=== PATIENT | female | born 1950 | race Caucasian/White ===

== ENCOUNTER → 2022-06-04 00:54 | Outpatient (CLI) | payer MEDICARE, SELFPAY ==
--- NOTE | 2022-06-04 | DI.CTLCSR_ITS ---
Exam(s) CT CHEST LUNG CANCER SCREEN EXAM: CT CHEST LUNG CANCER SCREEN CLINICAL HISTORY: FORMER SMOKER Z87.891 SCREENING FOR LUNG CANCER TECHNIQUE: Imaging Protocol: Axial computed tomography images with coronal and sagittal reformatted images were created and reviewed COMPARISON: No exams were available for comparison FINDINGS: Tracheobronchial tree: Patent where visualized. Pulmonary parenchyma: No focal consolidating infiltrates are seen. Moderate centrilobular emphysemat ous changes are present. There is scarring in the lung apices right greater than left. Lung Nodules: There is a 1.5 x 1.7 cm mildly spiculated mass in the medial aspect of the right upper lobe which appears intraparenchymal. There are other pulmonary nodule seen also present. The larges t is associated with the right major fissure and measures 0.8 cm. Mediastinum and Etta: The lack of contrast does limit evaluation of the mediastinum. But there does appear to be an enlarged lymph node anterior to the trachea measuring 3 x 2.3 cm. The esophagus is u nremarkable. Thyroid gland: Unremarkable. Lymph nodes: No supraclavicular or axillary adenopathy is present. Pleura: No effusion or pneumothorax. Heart: The heart is not dilated. No coronary artery calcifications are seen. No pericardial effusion . Aorta: Thoracic aorta non-dilated.Atherosclerosis is present. Upper abdomen: Unremarkable. Soft Tissues: Unremarkable. Bones: Within normal limits. IMPRESSION: 1. 1.5 x 1.7 cm mass in the medial aspect of the right upper lobe. Enlarged mediastinal lymph node m easuring 3 x 2.3 cm. 2. Centrilobular emphysema. 3. Smaller noncalcified pulmonary nodules. The largest measures 0.8 cm and is located in the right l ower lobe. Lung RADS Cat 4X - Category 3 or 4 nodules with additional features or imaging findings that increase s the suspicion of malignancy. Lung-RADS 1.0 CATEGORIES: Category 0 - Prior chest CT exam(s) being located for comparison. Category 1 - Annual screening in 12 months. No nodules or definitely benign nodules. Category 2 - Annual screening in 12 months. Benign appearance. Nodules with low likelihood of becomin g active cancer. Category 3 - 6-month follow-up. Probably benign. Short-term follow-up suggested. Nodules with low lik elihood of becoming active cancer. Category 4A - 3-month follow-up and CT/PET if >8 mm in size. Suspicious finding. Findings which requi re additional testing. Category 4B - Findings which require additional testing and tissue sampling. Suspicious finding. Category 4X - Category 3 or 4 nodules with additional features or imaging findings that increases the suspicion of malignancy. Modifier S- Potentially clinically significant finding. (Non lung cancer) RADIATION DOSE DELIVERED: 78.32mGy.cm Total DLP 1.84mGy CTDIvol 78.32mGy.cm Total DLP 1.84mGy CTDIvol DATA REPOSITORY: All CT scans at this facility are submitted to the National Radiology Data Registry (NRDR) Dose Index Registry (DIR) with the [employer] (ACR). RADIATION OPTIMIZATION: All CT scans at this facility use at least one of these dose optimization te chniques: automated exposure control; mA and/or kV adjustment per patient size (includes targeted exa ms where dose is matched to clinical indication); or iterative reconstruction.
== END ==
PROVIDERS: Visit Provider Family Medicine
DX: Z87.891 Personal history of nicotine dependence (principal); J43.2 Centrilobular emphysema; R91.8 Other nonspecific abnormal finding of lung field
CPT/HCPCS: 71271

== ENCOUNTER 2022-07-15 01:24 | Outpatient (CLI) | payer MEDICARE, SELFPAY ==
--- NOTE | 2022-07-15 07:00 | DI.MAMMO_ITS ---
Exam(s) US BREAST RT COMPLETE MG MAMMO DIAGNOSTIC BI EXAM: MG MAMMO DIAGNOSTIC BI and U/S breast RT complete CLINICAL HISTORY: right PET+ breast nodule N64.9 DISORDER OF BREAST. TECHNIQUE: Craniocaudal and mediolateral oblique Full Field Digital Mammography views with Computer Aided Diagnosis followed by Tomosynthesis and right breast ultrasound. This is a baseline mammogram. FINDINGS: Mammography/Tomosynthesis: Masses/Architectural Distortion: None seen. There is a 1 cm well-circumscribed nodule at the 12 o'sarah ck position of the right breast. This corresponds to a dermal focus of increased activity on the PET CT scan. Sonographically this corresponds to a bilobed hypoechoic subcutaneous nodule at the 12 o'c lock position in the right breast. This likely is reflect a benign dermal lesion. Microcalcifictions: No suspicious pleomorphic-type are seen. Skin Thickening/Nipple Retraction: None. Complete right breast US: Echotexture: Normal appearance of the glandular tissue. Shadowing: No suspicious foci. Cyst: None. Solid lesions: The 1 cm dermal lesion is seen at the 12 o'clock position of the right breast and zunilda esponds to the mammographic abnormality as described above. At the 1 o'clock position of the right b reast near the chest wall 3 cm from the nipple, there is a hypoechoic 0.8 cm area. This may correspo nd to the finding seen on the PET scan. Ductal dilation: None. IMPRESSION: 1. 0.8 cm hypoechoic area at of the right breast 3 cm from the nipple. 2. This area should be further evaluated. An MRI of the breast is recommended at this time for garret r characterization. Alternatively, an ultrasound-guided biopsy may be obtained. 3. The findings were discussed with the patient on the date of the examination. The findings were di scussed with the patient's physician Dr. Josephine Mccloud at 2:20 p.m. on 07/15/2022. BI-RADS Category 4 - Suspicious Abnormality: Biopsy should be considered Breast Density - Category C - Heterogeneously dense Breast density Category C or D implies that the patient has dense breast tissue. Dense breast tissue can make it harder to find cancer on a mammogram. Dense breast tissue is also associated with an incr eased risk of breast cancer. This information about the result of the mammogram report was provided to the patient to raise their awareness. Use this report when you speak with the patient about their risks for breast cancer, which includes their family history. At that time, you may recommend additional screening tests (Ultrasoun d or MRI) as these tests may add significant information. A negative radiographic report should not delay biopsy if a dominant or clinically suspicious mass is present. Up to ten percent of cancers are not identified on mammography. A negative report may reinforce clinical impression. Adenosis and dense breasts may obscure an underlying neoplasm. False positive reports average 6 to 10%. Patient will receive a letter notifying them of these results.
== END 2022-07-15 01:44 ==
LOC: DI 01:25
PROVIDERS: PCP Family Medicine; Visit Provider Student in an Organized Health Care Education/Training Program
DX: R92.8 Other abnormal and inconclusive findings on diagnostic imaging of breast (principal)
CPT/HCPCS: 76642; 77062; 77066; G0279

== ENCOUNTER → 2022-07-22 11:17 | Outpatient (BNVA) | payer MEDICARE, SELFPAY | PROVIDERS: PCP Family Medicine; Referring Provider Student in an Organized Health Care Education/Training Program; Visit Provider Surgery | DX: L98.9 Disorder of the skin and subcutaneous tissue, unspecified (principal) | CPT/HCPCS: 99203 ==

== ENCOUNTER 2022-07-29 01:57 | Outpatient (CLI) | payer MEDICARE, SELFPAY ==
--- NOTE | 2022-07-29 06:45 | DI.MRI_ITS ---
Exam(s) MR BRAIN WO/W EXAM: MR BRAIN WO/W CLINICAL HISTORY: concern for SCLC, PET+ lung mass with mets,r91.8. TECHNIQUE: Multiplanar multisequence MRI of the brain was performed. CONTRAST MATERIAL: IV Contrast: 15 ML of Dotarem contrast administered. COMPARISON: No exams were available for comparison FINDINGS: VENTRICLES AND EXTRA AXIAL SPACES: Normal in size and morphology for the patient's age. HEMORRHAGE: None. CEREBRAL PARENCHYMA: Mild atrophy. Mild white matter changes of small vessel disease. No focus of r estricted diffusion to suggest acute infarct. No space-occupying lesion identified. MIDLINE SHIFT: None. BRAINSTEM/CEREBELLUM: Normal. ENHANCEMENT: No suspicious enhancement identified. VISUALIZED PARANASAL SINUSES/MASTOIDS: Clear. OTHER FINDINGS: Orbits and pituitary are unremarkable. IMPRESSION: No evidence metastatic disease. DATA REPOSITORY:
[2022-07-29 10:15] LABS: CREATININE 1.3 mg/dL (0.55-1.02); Estimated GFR 43.69 (mL/min/1.73m2)
[2022-07-29] MEDS: Normal Saline Flush 10 ML SYR IVP (10:25)
== END 2022-07-29 02:17 ==
LOC: DI 01:57
PROVIDERS: PCP Family Medicine; Visit Provider Student in an Organized Health Care Education/Training Program
DX: R91.8 Other nonspecific abnormal finding of lung field (principal); Z01.812 Encounter for preprocedural laboratory examination; G31.89 Other specified degenerative diseases of nervous system; R90.82 White matter disease, unspecified
CPT/HCPCS: 70553; 82565

== ENCOUNTER → 2022-07-31 09:15 | Outpatient (BNVA) | payer MEDICARE, SELFPAY | PROVIDERS: PCP Family Medicine; Referring Provider Family Medicine; Visit Provider Surgery | DX: D48.5 Neoplasm of uncertain behavior of skin (principal) | CPT/HCPCS: 99214 ==

== ENCOUNTER 2022-07-31 10:10 | Outpatient (REF) | payer MEDICARE, SELFPAY ==
--- NOTE | 2022-07-31 09:55 | SKI_PTH ---
PATIENT: Sarah Painter LOC: [facility] U#:[id number] AGE/SX: 71/F ROOM: RE07/31/[address]: rBendon Morrissey MD : 1950 BED: DIS: 07/31/2022 SPEC #: [id number] RECD: 07/31/22 12:40 STATUS: JASMINE RETrista #: [id number] DAFNE: 07/31/22 09:[address]: Brendon Morrissey DEPT: Surgical Specimen RECD BY: Evelyn Fung ENTERED: 07/31/22 12:42 SP TYPE: SKI OTHR DR: Josephine Mccloud Tissues: 1 - SKIN BIOPSY(SHAVE/PUNCH) Procedures: SKIN LEVEL 4 Comments: [id number]
== END 2022-07-31 10:11 | disposition home or self-care (01) ==
LOC: LBN 10:10
PROVIDERS: PCP Family Medicine; Visit Provider Surgery
DX: L98.8 Other specified disorders of the skin and subcutaneous tissue (principal)
CPT/HCPCS: 88305

== ENCOUNTER → 2022-08-09 14:46 | Outpatient (BNVA) | payer MEDICARE, SELFPAY | PROVIDERS: PCP Family Medicine; Referring Provider Family Medicine; Visit Provider Surgery | DX: Z48.89 Encounter for other specified surgical aftercare (principal); D23.9 Other benign neoplasm of skin, unspecified | CPT/HCPCS: 99212 ==

== ENCOUNTER 2022-09-03 03:24 | Outpatient (CLI) | payer MEDICARE, SELFPAY ==
[2022-09-03 07:37] LABS: Abs Immature Grans 0.01 10^3/uL (0.0-0.06); Absolute Basophil Count 0.05 10^3/uL (0.0-0.2); Absolute Eosinophil Count 0.12 10^3/uL (0.0-0.7); Absolute Lymphocyte Count 1.16 10^3/uL (1.2-3.4); Absolute Monocyte Count 0.45 10^3/uL (0.1-0.8); Absolute Neutrophil Count 4.24 10^3/uL (1.2-6.7); Basophils % 0.8; HGB 13.3 g/dL (11.2-15.7); Immature Grans % 0.2; Lymphocytes % 19.2; MCHC 32.4 % (32.0-36.0); MCV 90 fL (80-95); MPV 9.6 fL (8.0-11.0); Monocytes % 7.5; Neutrophils % 70.3; Platelet Count 260 10^3/uL (130-400); RBC 4.58 10^6/uL (3.93-5.22); RDW 13.9 % (11.7-14.6); RDW-SD 45.3 fL; WBC 6.03 10^3/uL (4.4-10.8)
[2022-09-03 07:54] LABS: ALT 20 U/L (14-59); AST 20 U/L (15-37); Albumin 3.4 g/dL (3.4-5.0); Alkaline Phosphatase 112 U/L (46-116); Anion Gap 8.4 mmol/L (3-11); BUN 28 mg/dL (7-18); Bilirubin, Total 0.3 mg/dL (0.2-1.0); CO2 27.6 mmol/L (21.0-32.0); CREATININE 1.1 mg/dL (0.55-1.02); Calcium 9.1 mg/dL (8.5-10.1); Chloride 105 mmol/L (98-107); Estimated GFR 53.39 (mL/min/1.73m2); FREE T4 1.15 ng/dL (0.76-1.46); Glucose 79 mg/dL (74-106); Magnesium 1.9 mg/dL (1.8-2.4); Potassium 4.1 mmol/L (3.5-5.1); Sodium 141 mmol/L (136-145); TSH 1.78 uIU/mL (0.36-3.74); Total Protein 7.7 g/dL (6.4-8.2)
== END 2022-09-03 03:25 | disposition home or self-care (01) ==
LOC: LBO 03:24
PROVIDERS: PCP Family Medicine; Visit Provider Internal Medicine Medical Oncology
DX: Z79.899 Other long term (current) drug therapy (principal); C34.91 Malignant neoplasm of unspecified part of right bronchus or lung
CPT/HCPCS: 36415; 80053; 83735; 84439; 84443; 85025

== ENCOUNTER 2022-09-25 02:30 | Outpatient (CLI) | payer MEDICARE, SELFPAY ==
[2022-09-25 08:30] LABS: Abs Immature Grans 0.02 10^3/uL (0.0-0.06); Absolute Basophil Count 0.02 10^3/uL (0.0-0.2); Absolute Eosinophil Count 0.09 10^3/uL (0.0-0.7); Absolute Lymphocyte Count 1.11 10^3/uL (1.2-3.4); Absolute Monocyte Count 0.44 10^3/uL (0.1-0.8); Absolute Neutrophil Count 2.86 10^3/uL (1.2-6.7); Basophils % 0.4; HCT 38.6 % (36.0-46.0); HGB 12.4 g/dL (11.2-15.7); Immature Grans % 0.4; Lymphocytes % 24.4; MCH 29.2 pg (27.0-33.0); MCHC 32.1 % (32.0-36.0); MCV 91 fL (80-95); Monocytes % 9.7; Neutrophils % 63.1; Platelet Count 181 10^3/uL (130-400); RBC 4.24 10^6/uL (3.93-5.22); RDW 14.8 % (11.7-14.6); RDW-SD 46.4 fL; WBC 4.54 10^3/uL (4.4-10.8)
[2022-09-25 09:11] LABS: ALT 42 U/L (14-59); AST 28 U/L (15-37); Albumin 3.5 g/dL (3.4-5.0); Alkaline Phosphatase 116 U/L (46-116); Anion Gap 7.1 mmol/L (3-11); BUN 21 mg/dL (7-18); Bilirubin, Total 0.2 mg/dL (0.2-1.0); CO2 26.9 mmol/L (21.0-32.0); CREATININE 1.3 mg/dL (0.55-1.02); Calcium 9.1 mg/dL (8.5-10.1); Chloride 107 mmol/L (98-107); Estimated GFR 43.69 (mL/min/1.73m2); FREE T4 1.16 ng/dL (0.76-1.46); Glucose 119 mg/dL (74-106); Magnesium 2.1 mg/dL (1.8-2.4); Potassium 4.2 mmol/L (3.5-5.1); Sodium 141 mmol/L (136-145); TSH 2.15 uIU/mL (0.36-3.74); Total Protein 7.4 g/dL (6.4-8.2)
== END 2022-09-25 02:31 | disposition home or self-care (01) ==
LOC: LBO 02:31
PROVIDERS: PCP Family Medicine; Visit Provider Internal Medicine Medical Oncology
DX: C34.91 Malignant neoplasm of unspecified part of right bronchus or lung (principal); Z79.899 Other long term (current) drug therapy
CPT/HCPCS: 36415; 80053; 83735; 84439; 84443; 85025

== ENCOUNTER 2022-10-15 02:10 | Outpatient (CLI) | payer MEDICARE, SELFPAY ==
--- NOTE | 2022-10-15 | DI.CT_ITS ---
Exam(s) CT CHEST/ABD/PEL W EXAM: CT CHEST/ABD/PEL W CLINICAL HISTORY: NSCLC, METS, ASSESS TREATMENT RESPONSE, MET DISEASE EVAL. TECHNIQUE: Imaging Protocol: Axial computed tomography images with coronal and sagittal reformatted images were created and reviewed CONTRAST MATERIAL: Intravenous: Omnipaque 350 Contrast volume:100 ml Oral: Yes. Oral contrast was administered for bowel opacification. COMPARISON: CT CT CHEST LUNG CANCER SCREEN from 06/04/2022 FINDINGS: CHEST: LUNGS: The previously described mass in the medial aspect of the right upper lobe is no longer seen. In addition, previously present sub apical nodular infiltrate in the right upper lobe is also no estrada price seen. However, there is a small nodular infiltrate in the lateral aspect of the right upper lobe now evident which show measures approximately 7 x 5 millimeters. Previously present fissure associa jimmy nodule in the right lower lobe measuring 7 by 5 millimeters is unchanged. Previously present sma ll nodular infiltrate in the posterior basal segment of the right lower lobe is no longer seen. No p leural effusion. In the opposite-left lung a small 2-3 millimeter nodular density in the lateral aspect of the left up per lobe is unchanged. Other nodular density in the lateral aspect of the left upper lobe is also un changed. In the left lower lobe there is an unchanged subpleural 3 millimeter nodule again noted. I n the lateral basal segment of the left lower lobe there is an unchanged 5 x 3 millimeter nodule. In the lateral aspect of the posterior basal segment of the left lower lobe there is a small pleural ba sed nodule measuring 3 millimeters which is more evident than on the prior study. No pleural effusions on either side. No significant new focal findings in the trachea and mainstem b ronchi. MEDIASTINUM: Decrease in right hilar adenopathy and subcarinal adenopathy. Left hilum unremarkable. No adenopathy in the anterior mediastinal fat. No axillary nor supraclavicular adenopathy. Visuali zed thyroid unremarkable. CARDIAC: Heart size is normal. There is no pericardial effusion.Caliber of the thoracic aorta is wit hin normal limits. OSSEOUS: No significant osseous lesions.No fractures.. ABDOMEN: There is no ascites. LIVER: There are no focal hepatic lesions nor dilatation of intrahepatic ducts. GALLBLADDER/BILIARY: No obvious gallbladder pathology. CBD is not dilated. PANCREAS: No evidence of pancreatic mass nor dilatation of the pancreatic duct. SPLEEN: Spleen is not enlarged. There are no intrasplenic lesions. Splenic and portal veins are garcia nt. ADRENALS: There are no significant adrenal masses. KIDNEYS: Small benign cyst in the superior pole left kidney noted measuring 1.2 x 1.0 cm. There is a 4 millimeter nonobstructive calculus in the right kidney midpole level. No solid renal masses. No hydronephrosis. No hydroureter.. ABDOMINAL AORTA: Abdominal aorta is calcified but not enlarged. Common iliac arteries are calcified but not enlarged. LYMPH NODES: There is no retroperitoneal nor paraaortic adenopathy. ABDOMINAL WALL: No evidence of significant anterior abdominal wall nor inguinal hernia. GI: There is no evidence of bowel obstruction. PELVIS: LYMPH NODES: There is no intrapelvic nor inguinal adenopathy. GI: No evidence of appendicitis.No evidence of sigmoid diverticulitis. URINARY BLADDER: No calculi nor masses evident REPRODUCTIVE: Uterus and adnexal regions appear unremarkable. No free fluid in the pelvis. OSSEOUS: No significant osseous lesions. IMPRESSION: 1. Compared to the prior CT scan of 06/04/2022 the previously described 1.5 x 1.7 cm mass in the medi al aspect of the right upper lobe is no longer present and the large right-sided mediastinal lymph no de has significantly decreased in size. The subcarinal adenopathy has also significantly decreased. 2. Other findings in both lung howard are decreased are stable with the exception of a new 7 x 5 mill imeter nodular infiltrate in the lateral aspect of the right upper lobe. Also new 3 millimeter subpl eural nodule in the left lower lobe. There are no pleural effusions. 3. No evidence of metastatic disease in the abdomen and pelvis. No ascites. 4. Small nonobstructive calculus in the right kidney and 4 millimeters. 5. No significant osseous lesions. No fractures. RADIATION DOSE DELIVERED: 1,618.26mGy.cm Total DLP DATA REPOSITORY: All CT scans at this facility are submitted to the National Radiology Data Registry (NRDR) Dose Index Registry (DIR) with the [employer] (ACR). RADIATION OPTIMIZATION: All CT scans at this facility use at least one of these dose optimization te chniques: automated exposure control; mA and/or kV adjustment per patient size (includes targeted exa ms where dose is matched to clinical indication); or iterative reconstruction.
[2022-10-15] MEDS: Barium Sulfate 2% W/V-Berry Smoothie 450 ML BTL 950 ML PO (08:10)
[2022-10-15] MEDS: Normal Saline - Diluent 50 ML VIAL IJ (10:27)
[2022-10-15] MEDS: Omnipaque 350 MG/ML 500 ML BTL-Imaging package 100 ML IJ (10:27)
== END 2022-10-15 02:30 ==
LOC: DI 02:10
PROVIDERS: PCP Family Medicine; Visit Provider Nurse Practitioner Family
DX: N20.0 Calculus of kidney (principal); R91.1 Solitary pulmonary nodule; C34.91 Malignant neoplasm of unspecified part of right bronchus or lung
CPT/HCPCS: 74177; 71260

== ENCOUNTER 2022-10-21 02:57 | Outpatient (CLI) | payer MEDICARE, SELFPAY ==
[2022-10-21 08:40] LABS: Abs Immature Grans 0.03 10^3/uL (0.0-0.06); Absolute Basophil Count 0.04 10^3/uL (0.0-0.2); Absolute Eosinophil Count 0.06 10^3/uL (0.0-0.7); Absolute Lymphocyte Count 0.81 10^3/uL (1.2-3.4); Absolute Monocyte Count 0.52 10^3/uL (0.1-0.8); Absolute Neutrophil Count 4.53 10^3/uL (1.2-6.7); Basophils % 0.7; HCT 36.9 % (36.0-46.0); HGB 12.2 g/dL (11.2-15.7); Immature Grans % 0.5; Lymphocytes % 13.5; MCH 30.7 pg (27.0-33.0); MCHC 33.1 % (32.0-36.0); MCV 93 fL (80-95); MPV 8.9 fL (8.0-11.0); Monocytes % 8.7; Neutrophils % 75.6; Platelet Count 310 10^3/uL (130-400); RBC 3.97 10^6/uL (3.93-5.22); WBC 5.99 10^3/uL (4.4-10.8)
[2022-10-21 09:20] LABS: ALT 37 U/L (14-59); AST 26 U/L (15-37); Albumin 3.5 g/dL (3.4-5.0); Alkaline Phosphatase 122 U/L (46-116); Anion Gap 9.2 mmol/L (3-11); BUN 17 mg/dL (7-18); Bilirubin, Total 0.2 mg/dL (0.2-1.0); CO2 24.8 mmol/L (21.0-32.0); CREATININE 1.3 mg/dL (0.55-1.02); Calcium 9.2 mg/dL (8.5-10.1); Chloride 107 mmol/L (98-107); Estimated GFR 43.69 (mL/min/1.73m2); FREE T4 1.03 ng/dL (0.76-1.46); Glucose 141 mg/dL (74-106); Sodium 141 mmol/L (136-145); TSH 3.44 uIU/mL (0.36-3.74); Total Protein 7.5 g/dL (6.4-8.2)
== END 2022-10-21 02:58 | disposition home or self-care (01) ==
LOC: LBO 02:57
PROVIDERS: PCP Family Medicine; Visit Provider Internal Medicine Medical Oncology
DX: C34.91 Malignant neoplasm of unspecified part of right bronchus or lung (principal); Z79.899 Other long term (current) drug therapy
CPT/HCPCS: 36415; 80053; 83735; 84439; 84443; 85025

== ENCOUNTER 2022-11-11 00:58 | Outpatient (CLI) | payer MEDICARE, SELFPAY ==
[2022-11-11 08:09] LABS: Abs Immature Grans 0.02 10^3/uL (0.0-0.06); Absolute Basophil Count 0.03 10^3/uL (0.0-0.2); Absolute Eosinophil Count 0.15 10^3/uL (0.0-0.7); Absolute Lymphocyte Count 0.98 10^3/uL (1.2-3.4); Absolute Monocyte Count 0.61 10^3/uL (0.1-0.8); Absolute Neutrophil Count 3.21 10^3/uL (1.2-6.7); Basophils % 0.6; HCT 35.7 % (36.0-46.0); Immature Grans % 0.4; Lymphocytes % 19.6; MCH 31.7 pg (27.0-33.0); MCHC 33.6 % (32.0-36.0); MCV 94 fL (80-95); Monocytes % 12.2; Neutrophils % 64.2; Platelet Count 179 10^3/uL (130-400); RBC 3.79 10^6/uL (3.93-5.22); RDW 20.4 % (11.7-14.6); RDW-SD 68.4 fL
[2022-11-11 08:44] LABS: ALT 42 U/L (14-59); AST 26 U/L (15-37); Albumin 3.6 g/dL (3.4-5.0); Alkaline Phosphatase 117 U/L (46-116); Anion Gap 8.9 mmol/L (3-11); BUN 22 mg/dL (7-18); Bilirubin, Total 0.2 mg/dL (0.2-1.0); CO2 26.1 mmol/L (21.0-32.0); CREATININE 1.2 mg/dL (0.55-1.02); Calcium 9.3 mg/dL (8.5-10.1); Chloride 104 mmol/L (98-107); Estimated GFR 48.09 (mL/min/1.73m2); Glucose 106 mg/dL (74-106); Magnesium 1.9 mg/dL (1.8-2.4); Potassium 4.4 mmol/L (3.5-5.1); Sodium 139 mmol/L (136-145); TSH 1.74 uIU/mL (0.36-3.74); Total Protein 7.5 g/dL (6.4-8.2)
== END 2022-11-11 00:59 | disposition home or self-care (01) ==
LOC: LBO 00:59
PROVIDERS: PCP Family Medicine; Visit Provider Internal Medicine Medical Oncology
DX: Z79.899 Other long term (current) drug therapy (principal); C34.91 Malignant neoplasm of unspecified part of right bronchus or lung
CPT/HCPCS: 36415; 80053; 83735; 84439; 84443; 85025

== ENCOUNTER 2023-01-20 11:30 | Outpatient (CLI) | payer MEDICARE, SELFPAY ==
[2023-01-20 10:09] LABS: Abs Immature Grans 0.02 10^3/uL (0.0-0.06); Absolute Basophil Count 0.05 10^3/uL (0.0-0.2); Absolute Eosinophil Count 0.12 10^3/uL (0.0-0.7); Absolute Lymphocyte Count 0.35 10^3/uL (1.2-3.4); Absolute Monocyte Count 0.53 10^3/uL (0.1-0.8); Absolute Neutrophil Count 3.52 10^3/uL (1.2-6.7); Basophils % 1.1; Eosinophils % 2.6; HCT 34.8 % (36.0-46.0); HGB 11.2 g/dL (11.2-15.7); Immature Grans % 0.4; Lymphocytes % 7.6; MCH 31.5 pg (27.0-33.0); MCHC 32.2 % (32.0-36.0); MCV 98 fL (80-95); MPV 8.8 fL (8.0-11.0); Monocytes % 11.5; Neutrophils % 76.8; Platelet Count 230 10^3/uL (130-400); RBC 3.55 10^6/uL (3.93-5.22); RDW 14.6 % (11.7-14.6); RDW-SD 52.8 fL; WBC 4.59 10^3/uL (4.4-10.8)
[2023-01-20 10:44] LABS: ALT 18 U/L (14-59); AST 16 U/L (15-37); Albumin 3.3 g/dL (3.4-5.0); Alkaline Phosphatase 128 U/L (46-116); Anion Gap 6.2 mmol/L (3-11); BUN 23 mg/dL (7-18); Bilirubin, Total 0.3 mg/dL (0.2-1.0); CO2 26.8 mmol/L (21.0-32.0); CREATININE 1.4 mg/dL (0.55-1.02); Calcium 9.6 mg/dL (8.5-10.1); Chloride 104 mmol/L (98-107); Estimated GFR 39.73 (mL/min/1.73m2); FREE T4 1.28 ng/dL (0.76-1.46); Glucose 89 mg/dL (74-106); Sodium 137 mmol/L (136-145); TSH 0.84 uIU/mL (0.36-3.74); Total Protein 8.1 g/dL (6.4-8.2)
== END 2023-01-20 11:31 | disposition home or self-care (01) ==
LOC: LBO 11:31
PROVIDERS: PCP Family Medicine; Visit Provider Internal Medicine Medical Oncology
DX: C34.91 Malignant neoplasm of unspecified part of right bronchus or lung (principal); Z79.899 Other long term (current) drug therapy
CPT/HCPCS: 36415; 80053; 83735; 84439; 84443; 85025

== ENCOUNTER 2023-03-31 01:25 | Outpatient (CLI) | payer MEDICARE, SELFPAY ==
--- NOTE | 2023-03-31 | DI.CT_ITS ---
Exam(s) CT CHEST W EXAM: CT CHEST W CLINICAL HISTORY: STAGE 4 LUNG CA, S/P CONSOLIDATIVE RT TO THORAX ENDING 12/2022 TECHNIQUE: Imaging Protocol: Axial computed tomography images with coronal and sagittal reformatted images were created and reviewed CONTRAST MATERIAL: Intravenous: Omnipaque 350 Contrast volume:70 ml. COMPARISON: CT CT CHEST LUNG CANCER SCREEN from 06/04/[address] CHEST/ABD/PEL W from 10/15/2022 FINDINGS: Pulmonary parenchyma: No consolidation. Underlying emphysematous and fibrotic changes. Bilateral scat tered subpleural nodules. Stable perifissural nodule on the right. Area of scarring seen laterally in the right upper lobe is unchanged. Tracheobronchial tree: No bronchiectasis or mucous plugging. Mediastinum and Etta: No dominant adenopathy or fluid collection. Pleura: No effusion or pneumothorax. Heart: The heart is not dilated. No coronary artery calcifications are seen. Aorta: Thoracic aorta non-dilated. Upper abdomen: Non-obstructing stone mid right kidney. Bones: Degenerative changes. Soft tissues: Unremarkable. IMPRESSION: No evidence of recurrent mass or adenopathy. RADIATION DOSE DELIVERED: 490.63mGy.cm Total DLP DATA REPOSITORY: All CT scans at this facility are submitted to the National Radiology Data Registry (NRDR) Dose Index Registry (DIR) with the [employer] (ACR). RADIATION OPTIMIZATION: All CT scans at this facility use at least one of these dose optimization te chniques: automated exposure control; mA and/or kV adjustment per patient size (includes targeted exa ms where dose is matched to clinical indication); or iterative reconstruction.
[2023-03-31 08:02] LABS: Abs Immature Grans 0.01 10^3/uL (0.0-0.06); Absolute Basophil Count 0.04 10^3/uL (0.0-0.2); Absolute Eosinophil Count 0.13 10^3/uL (0.0-0.7); Absolute Monocyte Count 0.37 10^3/uL (0.1-0.8); Basophils % 0.9; Eosinophils % 2.9; HCT 39.7 % (36.0-46.0); HGB 12.9 g/dL (11.2-15.7); Immature Grans % 0.2; Lymphocytes % 15.7; MCH 29.1 pg (27.0-33.0); MCHC 32.5 % (32.0-36.0); MCV 89 fL (80-95); Monocytes % 8.3; Platelet Count 243 10^3/uL (130-400); RBC 4.44 10^6/uL (3.93-5.22); RDW-SD 53.1 fL; WBC 4.45 10^3/uL (4.4-10.8)
[2023-03-31 08:36] LABS: ALT 26 U/L (14-59); AST 24 U/L (15-37); Albumin 3.5 g/dL (3.4-5.0); Alkaline Phosphatase 122 U/L (46-116); Anion Gap 9.4 mmol/L (3-11); BUN 33 mg/dL (7-18); Bilirubin, Total 0.2 mg/dL (0.2-1.0); CO2 26.6 mmol/L (21.0-32.0); CREATININE 1.4 mg/dL (0.55-1.02); Calcium 9.2 mg/dL (8.5-10.1); Chloride 104 mmol/L (98-107); Estimated GFR 39.73 (mL/min/1.73m2); Glucose 108 mg/dL (74-106); Magnesium 2.1 mg/dL (1.8-2.4); Potassium 4.3 mmol/L (3.5-5.1); Sodium 140 mmol/L (136-145); TSH 2.42 uIU/mL (0.36-3.74); Total Protein 7.9 g/dL (6.4-8.2)
[2023-03-31] MEDS: Normal Saline - Diluent 50 ML VIAL IJ (08:43)
[2023-03-31] MEDS: Omnipaque 350 MG/ML 500 ML BTL-Imaging package 70 ML IJ (08:43)
[2023-03-31] MEDS: Normal Saline Flush 10 ML SYR IJ (08:47)
[2023-03-31 08:52] LABS: FREE T4 0.95 ng/dL (0.76-1.46)
== END 2023-03-31 01:45 ==
LOC: DI 01:25
PROVIDERS: PCP Family Medicine; Visit Provider Internal Medicine Medical Oncology
DX: Z79.899 Other long term (current) drug therapy (principal); C34.91 Malignant neoplasm of unspecified part of right bronchus or lung
CPT/HCPCS: 80053; 71260; 83735; 84439; 84443; 85025

== ENCOUNTER → 2023-07-01 00:39 | Outpatient (CLI) | payer MEDICARE, SELFPAY ==
--- NOTE | 2023-07-01 | DI.CT_ITS ---
Exam(s) CT CHEST/ABD/PEL W EXAM: CT CHEST/ABD/PEL W CLINICAL HISTORY: LUNG CANCER C34.91 METS TO RIGHT ADRENAL GLAND C79.71 SURVEILLANCE. TECHNIQUE: Imaging Protocol: Axial computed tomography images with coronal and sagittal reformatted images were created and reviewed CONTRAST MATERIAL: Intravenous: Omnipaque 350 Contrast volume:100 ml Oral: yes / COMPARISON: CT CT CHEST/ABD/PEL W from 10/15/[address] CHEST W from 03/31/2023 FINDINGS: CHEST: Tracheobronchial tree: Patent where visualized. Pulmonary parenchyma: Vague nodular densities again noted in an in the right upper lobe. Stable julienne fissural nodule on the right. Underlying emphysematous changes. No consolidation or dominant measur able mass. Pleura: No effusion or pneumothorax. Lymph nodes: Within normal limits. Aorta: Thoracic portion non-dilated. Heart: Normal size. No visible coronary artery calcifications. Bones: Unremarkable for age. No lytic or blastic lesions.No compression fractures. ABDOMEN and PELVIS: Liver: Normal density. No measurable mass. Gallbladder and biliary tract: No evidence of stones or wall thickening. No biliary dilatation. Pancreas: Normal density, no abnormal calcifications or inflammatory process. Spleen: Normal. Kidneys: Normal size, contour and axis. Stone mid right kidney. No obstructive uropathy. Small cys t again noted upper pole left kidney. No follow-up recommended. No suspicious masses seen. Adrenal glands: No masses seen. Aorta: Abdominal portion non-dilated. Mild atherosclerotic changes. Lymph nodes: Within normal limits. Soft tissues: Unremarkable. Bladder: Unremarkable. Bowel: No obstruction or bowel wall thickening. Moderate to increased quantity of stool. Peritoneal cavity: No ascites. No focal collection or mesenteric inflammatory response. Bones: Degenerative changes. No lytic or blastic lesions. Reproductive organs: Within normal limits. IMPRESSION: No evidence of recurrence mass or adenopathy. Stable small nodular densities right upper lobe. No evidence of metastatic disease in the abdomen or pelvis. RADIATION DOSE DELIVERED: 1,756.32mGy.cm Total DLP DATA REPOSITORY: All CT scans at this facility are submitted to the National Radiology Data Registry (NRDR) Dose Index Registry (DIR) with the [employer] (ACR). RADIATION OPTIMIZATION: All CT scans at this facility use at least one of these dose optimization te chniques: automated exposure control; mA and/or kV adjustment per patient size (includes targeted exa ms where dose is matched to clinical indication); or iterative reconstruction.
[2023-07-01] MEDS: Barium Sulfate 2% W/V-Creamy Vanilla Smoothie 450 ML BTL PO (08:20)
[2023-07-01] MEDS: Barium Sulfate 2% W/V-Berry Smoothie 450 ML BTL PO (08:21)
[2023-07-01 08:30] LABS: Abs Immature Grans 0.01 10^3/uL (0.0-0.06); Absolute Basophil Count 0.03 10^3/uL (0.0-0.2); Absolute Eosinophil Count 0.08 10^3/uL (0.0-0.7); Absolute Lymphocyte Count 0.68 10^3/uL (1.2-3.4); Absolute Monocyte Count 0.37 10^3/uL (0.1-0.8); Absolute Neutrophil Count 3.03 10^3/uL (1.2-6.7); Basophils % 0.7; Eosinophils % 1.9; HGB 12.5 g/dL (11.2-15.7); Immature Grans % 0.2; Lymphocytes % 16.2; MCHC 32.9 % (32.0-36.0); MCV 91 fL (80-95); MPV 8.9 fL (8.0-11.0); Monocytes % 8.8; Neutrophils % 72.2; Platelet Count 214 10^3/uL (130-400); RBC 4.16 10^6/uL (3.93-5.22); RDW 14.5 % (11.7-14.6); RDW-SD 48.9 fL
[2023-07-01 08:55] LABS: ALT 24 U/L (14-59); AST 18 U/L (15-37); Albumin 3.6 g/dL (3.4-5.0); Alkaline Phosphatase 124 U/L (46-116); Anion Gap 7.8 mmol/L (3-11); BUN 28 mg/dL (7-18); Bilirubin, Total 0.4 mg/dL (0.2-1.0); CO2 26.2 mmol/L (21.0-32.0); CREATININE 1.3 mg/dL (0.55-1.02); Calcium 9.5 mg/dL (8.5-10.1); Chloride 104 mmol/L (98-107); Estimated GFR 43.42 (mL/min/1.73m2); Glucose 97 mg/dL (74-106); Potassium 4.1 mmol/L (3.5-5.1); Sodium 138 mmol/L (136-145); TSH 2.33 uIU/mL (0.36-3.74); Total Protein 7.8 g/dL (6.4-8.2)
[2023-07-01] MEDS: Normal Saline - Diluent 50 ML VIAL IJ (10:13)
[2023-07-01] MEDS: Omnipaque 350 MG/ML 500 ML BTL-Imaging package IJ (10:14)
== END ==
PROVIDERS: PCP Family Medicine; Visit Provider Internal Medicine Medical Oncology
DX: Z79.899 Other long term (current) drug therapy (principal); C34.11 Malignant neoplasm of upper lobe, right bronchus or lung; C79.71 Secondary malignant neoplasm of right adrenal gland
CPT/HCPCS: 74177; 80053; 71260; 83735; 84439; 84443; 85025

== ENCOUNTER → 2023-10-06 02:19 | Outpatient (CLI) | payer MEDICARE, SELFPAY ==
--- NOTE | 2023-10-06 | DI.CT_ITS ---
Exam(s) CT CHEST/ABD/PEL W EXAM: CT CHEST/ABD/PEL W CLINICAL HISTORY: LUNG CANCER C34.91 METS TO RT ADRENAL GLAND, ASSESS RESPONSE TECHNIQUE: Imaging Protocol: Axial computed tomography images with coronal and sagittal reformatted images were created and reviewed CONTRAST MATERIAL: Intravenous: Omnipaque 350 contrast volume:100 mL Oral: Yes COMPARISON: CT CT CHEST/ABD/PEL W from 07/01/2023 FINDINGS: CHEST: Tracheobronchial tree: Patent where visualized. Pulmonary parenchyma: Moderate centrilobular emphysematous changes are present. There is a stable 3 m m nodule in the periphery of the left lower lobe (series 5, image 43). Stable scarring in the perihil ar region on the right. No new pulmonary masses are seen. Stable nodularity adjacent to the right min or fissure. No focal consolidating infiltrates are seen. Visualized thyroid gland: Unremarkable. Mediastinum and Etta: Stable right hilar soft tissue. No significant mediastinal adenopathy is seen. The esophagus is unremarkable. Pleura: No effusion or pneumothorax. Heart: The heart is not dilated. No coronary artery calcifications are seen. Small pericardial effusi on. Pulmonary arteries: Due to the timing of the bolus the pulmonary arteries are not adequately opacifie d for evaluation of pulmonary emboli. No large central pulmonary embolus is seen. Aorta: Thoracic aorta non-dilated. Atherosclerosis. Lymph nodes: No significant axillary or supraclavicular adenopathy is present. Soft tissues: Unremarkable. Bones:Within normal limits for the patient's age. ABDOMEN: Liver: Normal density. Stable tiny hypodensity in the right lobe. It is too small for further charact erization. No suspicious hepatic masses are seen. Portal, Superior Mesenteric, and Splenic Veins: Unremarkable. Gallbladder and Biliary Tract: No radiodense calculus or dilation. Pancreas: Normal density, no abnormal calcifications or inflammatory process. Spleen: Normal. Adrenals: The adrenal glands are stable in appearance. Kidneys: Normal size, contour and axis. Right nephrolithiasis. No obstructive uropathy. Stable left r enal cyst. No follow-up is recommended. Abdominal Aorta: Abdominal portion non-dilated. Atherosclerosis. Bowel: The stomach is incompletely distended but grossly unremarkable. There is a moderate amount of stool throughout the colon suggesting constipation. No evidence of appendicitis. No bowel wall thicke jose miguel or obstruction. Peritoneal Cavity: No ascites, collection or mesenteric inflammatory response. No free air. Lymph Nodes: Within normal limits. Bones: Within normal limits for the patient's age. Aggressive osseous lesions. Soft Tissues: There is a small fat containing umbilical hernia. PELVIS: Bladder: Symmetric distention, no gross wall thickening. Reproductive Organs: Unremarkable as visualized. Lymph Nodes: Within normal limits. Bones: Within normal limits. IMPRESSION: 1. Stable appearance of the right perihilar region and right upper lobe. No new pulmonary infiltrates or masses. 2. Moderate centrilobular emphysema. 3. Stable left lower lobe pulmonary nodule. 4. Stable appearance of the abdomen and pelvis. Stable appearance of the adrenal glands. RADIATION DOSE DELIVERED: 1,730.9mGy.cm Total DLP DATA REPOSITORY: All CT scans at this facility are submitted to the National Radiology Data Registry (NRDR) Dose Index Registry (DIR) with the [employer] (ACR). RADIATION OPTIMIZATION: All CT scans at this facility use at least one of these dose optimization te chniques: automated exposure control; mA and/or kV adjustment per patient size (includes targeted exa ms where dose is matched to clinical indication); or iterative reconstruction.
[2023-10-06] MEDS: Barium Sulfate 2% W/V-Creamy Vanilla Smoothie 450 ML BTL PO (09:24)
[2023-10-06 09:29] LABS: Abs Immature Grans 0.02 10^3/uL (0.0-0.06); Absolute Basophil Count 0.03 10^3/uL (0.0-0.2); Absolute Eosinophil Count 0.12 10^3/uL (0.0-0.7); Absolute Lymphocyte Count 0.66 10^3/uL (1.2-3.4); Absolute Monocyte Count 0.39 10^3/uL (0.1-0.8); Absolute Neutrophil Count 3.84 10^3/uL (1.2-6.7); Basophils % 0.6; Eosinophils % 2.4; HCT 41.5 % (36.0-46.0); Immature Grans % 0.4; MCH 31.1 pg (27.0-33.0); MCHC 33.7 % (32.0-36.0); MCV 92 fL (80-95); MPV 9.4 fL (8.0-11.0); Monocytes % 7.7; Neutrophils % 75.9; Platelet Count 231 10^3/uL (130-400); RDW-SD 47.9 fL; WBC 5.06 10^3/uL (4.4-10.8)
[2023-10-06 09:55] LABS: ALT 28 U/L (14-59); AST 20 U/L (15-37); Albumin 3.8 g/dL (3.4-5.0); Alkaline Phosphatase 111 U/L (46-116); Anion Gap 9.6 mmol/L (3-11); BUN 28 mg/dL (7-18); Bilirubin, Total 0.4 mg/dL (0.2-1.0); CO2 26.4 mmol/L (21.0-32.0); CREATININE 1.3 mg/dL (0.55-1.02); Calcium 9.9 mg/dL (8.5-10.1); Chloride 104 mmol/L (98-107); Estimated GFR 43.42 (mL/min/1.73m2); Glucose 111 mg/dL (74-106); Potassium 4.2 mmol/L (3.5-5.1); Sodium 140 mmol/L (136-145); Total Protein 8.1 g/dL (6.4-8.2)
[2023-10-06] MEDS: Normal Saline - Diluent 50 ML VIAL IJ (10:12)
[2023-10-06] MEDS: Omnipaque 350 MG/ML 100 ML BTL IJ (10:13)
== END ==
PROVIDERS: Internal Medicine Medical Oncology; PCP Family Medicine; Visit Provider Nurse Practitioner Family
DX: C34.91 Malignant neoplasm of unspecified part of right bronchus or lung (principal)
CPT/HCPCS: 74177; 80053; 71260; 85025; J3490

== ENCOUNTER → 2024-01-06 02:04 | Outpatient (CLI) | payer MEDICARE, SELFPAY ==
--- NOTE | 2024-01-06 | DI.CT_ITS ---
Exam(s) CT CHEST/ABD/PEL W EXAM: CT CHEST/ABD/PEL W CLINICAL HISTORY: RT LUNG CA,C34.91,METASTATIC TO RT ADRENAL GLAND,C79.71,ASSESS RX RESPONSE. TECHNIQUE: Imaging Protocol: Axial computed tomography images with coronal and sagittal reformatted images were created and reviewed CONTRAST MATERIAL: Intravenous: Omnipaque 350 Contrast volume:100 ml Oral: yes / COMPARISON: CT CT CHEST/ABD/PEL W from 10/06/2023 FINDINGS: CHEST: Pulmonary arteries are well opacified. No evidence of pulmonary emboli. Tracheobronchial tree: Patent where visualized. Pulmonary parenchyma: No consolidation or dominant measurable mass. Centrilobular emphysema again no jimmy. Stable perifissural are nodule at the right minor fissure. Stable 3 millimeter left lower lobe n odule. Stable right perihilar scarring. No new nodules. Pleura: No effusion or pneumothorax. Lymph nodes: Within normal limits. Stable small amount of soft tissue density at the right hilum. Aorta: Thoracic portion non-dilated. Heart: No pericardial effusion. Heart size normal. Bones: Unremarkable for age. No lytic or blastic lesions.No compression fractures. Soft tissues: Unremarkable. ABDOMEN and PELVIS: Liver: Normal density. Stable tiny hypodensity in the right lobe. Gallbladder and biliary tract: No evidence of stones or wall thickening. No biliary dilatation. Pancreas: Normal density, no abnormal calcifications or inflammatory process. Spleen: Normal. Kidneys: Normal size, contour and axis. A right renal calculus again noted. Stable cyst upper pole le ft kidney. No obstructive uropathy. No suspicious masses seen. Adrenal glands: No masses seen. Aorta: Abdominal portion non-dilated. Atherosclerotic changes. Lymph nodes: Within normal limits. Soft tissues: Unremarkable. Bladder: Unremarkable. Bowel: No obstruction or bowel wall thickening. Increased stool. Appendix normal. Peritoneal cavity: No ascites. No focal collection. No mesenteric inflammatory response. Bones: Unremarkable for age. Reproductive organs: Within normal limits. IMPRESSION: stable appearance of right perihilar scarring in the spine and minimal amount of soft tissue density. Stable small bilateral pulmonary nodules. Stable appearance of adrenal glands. No mass is visible currently. No evidence of new sites of metast atic disease. RADIATION DOSE DELIVERED: Total DLP DATA REPOSITORY: All CT scans at this facility are submitted to the National Radiology Data Registry (NRDR) Dose Index Registry (DIR) with the [employer] (ACR). RADIATION OPTIMIZATION: All CT scans at this facility use at least one of these dose optimization te chniques: automated exposure control; mA and/or kV adjustment per patient size (includes targeted exa ms where dose is matched to clinical indication); or iterative reconstruction.
[2024-01-06] MEDS: Barium Sulfate 2% W/V-Berry Smoothie 450 ML BTL PO (07:50)
[2024-01-06] MEDS: Barium Sulfate 2% W/V-Creamy Vanilla Smoothie 450 ML BTL PO (07:51)
[2024-01-06 08:30] LABS: Abs Immature Grans 0.01 10^3/uL (0.0-0.06); Absolute Basophil Count 0.03 10^3/uL (0.0-0.2); Absolute Eosinophil Count 0.07 10^3/uL (0.0-0.7); Absolute Lymphocyte Count 0.74 10^3/uL (1.2-3.4); Absolute Monocyte Count 0.41 10^3/uL (0.1-0.8); Basophils % 0.6; Eosinophils % 1.5; HGB 13.5 g/dL (11.2-15.7); Immature Grans % 0.2; Lymphocytes % 15.5; MCH 30.8 pg (27.0-33.0); MCHC 33.8 % (32.0-36.0); MCV 91 fL (80-95); MPV 9.5 fL (8.0-11.0); Monocytes % 8.6; Neutrophils % 73.6; Platelet Count 245 10^3/uL (130-400); RBC 4.39 10^6/uL (3.93-5.22); RDW 13.7 % (11.7-14.6); RDW-SD 46.5 fL; WBC 4.76 10^3/uL (4.4-10.8)
[2024-01-06 08:54] LABS: ALT 26 U/L (14-59); AST 20 U/L (15-37); Albumin 3.6 g/dL (3.4-5.0); Alkaline Phosphatase 113 U/L (46-116); Anion Gap 7.9 mmol/L (3-11); BUN 23 mg/dL (7-18); Bilirubin, Total 0.4 mg/dL (0.2-1.0); CO2 27.1 mmol/L (21.0-32.0); CREATININE 1.3 mg/dL (0.55-1.02); Calcium 8.9 mg/dL (8.5-10.1); Chloride 103 mmol/L (98-107); Estimated GFR 43.15 (mL/min/1.73m2); FREE T4 1.13 ng/dL (0.76-1.46); Glucose 98 mg/dL (74-106); Potassium 4.1 mmol/L (3.5-5.1); Sodium 138 mmol/L (136-145); TSH 2.67 uIU/Ml (0.36-3.74); Total Protein 7.7 g/dL (6.4-8.2)
[2024-01-06] MEDS: Normal Saline - Diluent 50 ML VIAL IJ (10:01)
[2024-01-06] MEDS: Omnipaque 350 MG/ML 500 ML BTL-Imaging package IJ (10:02)
== END ==
PROVIDERS: PCP Family Medicine; Visit Provider Nurse Practitioner Family
DX: C34.91 Malignant neoplasm of unspecified part of right bronchus or lung (principal); C79.71 Secondary malignant neoplasm of right adrenal gland; J43.2 Centrilobular emphysema; R91.8 Other nonspecific abnormal finding of lung field; N28.1 Cyst of kidney, acquired; N20.0 Calculus of kidney; Z79.899 Other long term (current) drug therapy
CPT/HCPCS: 74177; 80053; 71260; 83735; 84439; 84443; 85025

== ENCOUNTER → 2024-04-05 02:38 | Outpatient (CLI) | payer MEDICARE, SELFPAY ==
--- NOTE | 2024-04-05 | DI.CT_ITS ---
Exam(s) CT CHEST/ABD/PEL W EXAM: CT CHEST/ABD/PEL W CLINICAL HISTORY: Malignant neoplasm, rt lung, C34.91; mets to rt adrenal gland, C79.71. TECHNIQUE: Imaging Protocol: Axial computed tomography images with coronal and sagittal reformatted images were created and reviewed CONTRAST MATERIAL: Intravenous: Omnipaque 350 Contrast volume:100 ml Oral: yes / COMPARISON: CT CT CHEST/ABD/PEL W from 01/06/2024 FINDINGS: CHEST: Tracheobronchial tree: Patent. Pulmonary parenchyma: No consolidation or dominant measurable mass. Stable right perifissural nodule . Emphysematous changes again noted. No new masses. Mild right perihilar scarring. Stable appeara nce of mild soft tissue density around the right hilum. No discrete adenopathy. Pleura: No effusion or pneumothorax. Mediastinum: Within normal limits. Aorta: Thoracic portion non-dilated. Pulmonary arteries: No visible emboli. Heart: Normal size. No pericardial effusion. Bones: Unremarkable for age. No lytic or blastic lesions.No compression fractures. Soft tissues: Unremarkable. ABDOMEN and PELVIS: Liver: Normal density. No measurable mass. Stable tiny hypodensity in the superior right lobe. Gallbladder and biliary tract: No evidence of stones or wall thickening. No biliary dilatation. Pancreas: Normal density, no abnormal calcifications or inflammatory process. Spleen: Normal. Kidneys: Normal size, contour and axis. Mid right renal stone again noted. No obstructive uropathy. No suspicious masses seen. Adrenal glands: No masses seen. Aorta: Abdominal portion non-dilated. Lymph nodes: Within normal limits. Soft tissues: Unremarkable. Bladder: Unremarkable. Bowel: No obstruction or bowel wall thickening. Peritoneal cavity: No ascites. No focal collection. No mesenteric inflammatory response. No free ai r. Bones: Degenerative changes in the lower lumbar spine. No lytic or blastic lesions Reproductive organs: Within normal limits. IMPRESSION: Stable appearance of the chest. No evidence of adenopathy or metastatic disease. No evidence of discrete adrenal mass. No evidence of metastatic disease in the abdomen or pelvis. RADIATION DOSE DELIVERED: 1,753.68mGy.cm Total DLP DATA REPOSITORY: All CT scans at this facility are submitted to the National Radiology Data Registry (NRDR) Dose Index Registry (DIR) with the [employer] (ACR). RADIATION OPTIMIZATION: All CT scans at this facility use at least one of these dose optimization te chniques: automated exposure control; mA and/or kV adjustment per patient size (includes targeted exa ms where dose is matched to clinical indication); or iterative reconstruction.
[2024-04-05] MEDS: Barium Sulfate 2% W/V-Creamy Vanilla Smoothie 450 ML BTL PO ×2 (07:25→07:26)
[2024-04-05 07:42] LABS: Abs Immature Grans 0.02 10^3/uL (0.0-0.06); Absolute Basophil Count 0.06 10^3/uL (0.0-0.2); Absolute Eosinophil Count 0.09 10^3/uL (0.0-0.7); Absolute Lymphocyte Count 0.92 10^3/uL (1.2-3.4); Absolute Monocyte Count 0.45 10^3/uL (0.1-0.8); Absolute Neutrophil Count 2.79 10^3/uL (1.2-6.7); Basophils % 1.4 %; Eosinophils % 2.1 %; HCT 40.8 % (36.0-46.0); HGB 13.4 g/dL (11.2-15.7); Immature Grans % 0.5 %; Lymphocytes % 21.2 %; MCH 30.6 pg (27.0-33.0); MCHC 32.8 % (32.0-36.0); MCV 93 fL (80-95); MPV 9.3 fL (8.0-11.0); Monocytes % 10.4 %; Neutrophils % 64.4 %; Platelet Count 209 10^3/uL (130-400); RBC 4.38 10^6/uL (3.93-5.22); RDW 13.8 % (11.7-14.6); RDW-SD 46.8 fL; WBC 4.33 10^3/uL (4.4-10.8)
[2024-04-05 08:08] LABS: ALT 29 U/L (14-59); AST 23 U/L (15-37); Albumin 3.8 g/dL (3.4-5.0); Alkaline Phosphatase 111 U/L (46-116); Anion Gap 8.3 mmol/L (3-11); BUN 29 mg/dL (7-18); Bilirubin, Total 0.47 mg/dL (0.2-1.0); CO2 25.7 mmol/L (21.0-32.0); CREATININE 1.3 mg/dL (0.55-1.02); Calcium 9.1 mg/dL (8.5-10.1); Chloride 106 mmol/L (98-107); Estimated GFR 43.15 (mL/min/1.73m2); FREE T4 1.21 ng/dL (0.76-1.46); Glucose 95 mg/dL (74-106); Potassium 4.2 mmol/L (3.5-5.1); Sodium 140 mmol/L (136-145); TSH 1.88 uIU/Ml (0.36-3.74); Total Protein 7.6 g/dL (6.4-8.2)
[2024-04-05] MEDS: Normal Saline - Diluent 50 ML VIAL IJ (09:20)
[2024-04-05] MEDS: Omnipaque 350 MG/ML 100 ML BTL IJ (09:20)
== END ==
PROVIDERS: PCP Family Medicine; Visit Provider Nurse Practitioner Family
DX: C34.91 Malignant neoplasm of unspecified part of right bronchus or lung (principal); C79.71 Secondary malignant neoplasm of right adrenal gland; R91.8 Other nonspecific abnormal finding of lung field; N20.0 Calculus of kidney; Z79.899 Other long term (current) drug therapy; R79.89 Other specified abnormal findings of blood chemistry
CPT/HCPCS: 74177; 80053; 71260; 83735; 84439; 84443; 85025; J3490

== ENCOUNTER 2024-07-07 00:43 | Outpatient (CLI) | payer MEDICARE, SELFPAY ==
--- NOTE | 2024-07-07 | DI.CT_ITS ---
Exam(s) CT CHEST/ABD/PEL W EXAM: CT CHEST/ABD/PEL W CLINICAL HISTORY: METS RT ADRENAL GLAND, NSCLC, RESTAGING, C34.91, C79.71. TECHNIQUE: Imaging Protocol: Axial computed tomography images with coronal and sagittal reformatted images were created and reviewed CONTRAST MATERIAL: Intravenous: Omnipaque 350 Contrast volume:100 ml Oral: Yes. Oral contrast was also administered for bowel opacification. COMPARISON: CT CT CHEST/ABD/PEL W from 04/05/2024 FINDINGS: CHEST: LUNGS: Small nodular infiltrate in the lateral aspect of the right upper lobe (series 5/image 24) is unchanged from 04/05/2024. In addition, there is a fissure adjacent nodule in the right lung which is also unchanged from that prior study. There are no new right lung nodules.. In the opposite-left dylan g there is an unchanged tiny nodule in the lateral basal segment of the left lower lobe. No new left lung nodules. No pleural effusions on either side. There no new findings in the trachea and mainstem bronchi. MEDIASTINUM: There is no new hilar adenopathy. Right hilum appears unchanged. Left hilum unchanged. S mall lymph node in the subcarinal region is unchanged. There is no adenopathy in the anterior mediast inal fat. CARDIAC: Heart size is normal. There is no pericardial effusion.Caliber of the thoracic aorta is wit hin normal limits. No evidence of dissection. OSSEOUS: No significant osseous lesions.No fractures.. ABDOMEN: There is no ascites. LIVER: There are no focal hepatic lesions nor dilatation of intrahepatic ducts. GALLBLADDER/BILIARY: No obvious gallbladder pathology. CBD is not dilated. PANCREAS: No evidence of pancreatic mass nor dilatation of the pancreatic duct. SPLEEN: Spleen is not enlarged. There are no intrasplenic lesions. Splenic and portal veins are garcia nt. ADRENALS: There are no significant adrenal masses. KIDNEYS: There is a solitary nonobstructive calculus in the right kidney again noted measuring 3-4 mm . No hydronephrosis.. There is again noted a benign cyst in the superior pole of the left kidney whic h measures 1.3 x 1.2 cm, unchanged. This does not require further imaging workup. No solid lesions in either kidney. ABDOMINAL AORTA: Abdominal aorta is not enlarged. LYMPH NODES: There is no retroperitoneal nor paraaortic adenopathy. ABDOMINAL WALL: No evidence of significant anterior abdominal wall nor inguinal hernia. GI: There is no evidence of bowel obstruction. PELVIS: LYMPH NODES: There is no intrapelvic nor inguinal adenopathy. GI: No evidence of appendicitis.No significant sigmoid diverticular disease. URINARY BLADDER: No calculi nor masses evident REPRODUCTIVE: Uterus and adnexal regions appear age-appropriate. There is no free fluid in the pelvis . OSSEOUS: No significant osseous lesions. No fractures nor listhesis. Multilevel chronic degenerative disc disease again noted. IMPRESSION: 1. Stable appearance of the previously described findings in the chest. No new intrathoracic findings . Pleural effusions. 2. No evidence of significant focal findings in the abdomen and pelvis. No ascites. RADIATION DOSE DELIVERED: 378.16mGy.cm Total DLP DATA REPOSITORY: All CT scans at this facility are submitted to the National Radiology Data Registry (NRDR) Dose Index Registry (DIR) with the [employer] (ACR). RADIATION OPTIMIZATION: All CT scans at this facility use at least one of these dose optimization te chniques: automated exposure control; mA and/or kV adjustment per patient size (includes targeted exa ms where dose is matched to clinical indication); or iterative reconstruction.
[2024-07-07] MEDS: Barium Sulfate 2% W/V-Berry Smoothie 450 ML BTL PO ×2 (07:28→07:29)
[2024-07-07 07:48] LABS: Abs Immature Grans 0.02 10^3/uL (0.0-0.06); Absolute Basophil Count 0.04 10^3/uL (0.0-0.2); Absolute Eosinophil Count 0.12 10^3/uL (0.0-0.7); Absolute Lymphocyte Count 0.73 10^3/uL (1.2-3.4); Absolute Monocyte Count 0.41 10^3/uL (0.1-0.8); Absolute Neutrophil Count 2.76 10^3/uL (1.2-6.7); Eosinophils % 2.9 %; HCT 43.1 % (36.0-46.0); HGB 13.9 g/dL (11.2-15.7); Immature Grans % 0.5 %; Lymphocytes % 17.9 %; MCH 30.2 pg (27.0-33.0); MCHC 32.3 % (32.0-36.0); MCV 94 fL (80-95); MPV 9.5 fL (8.0-11.0); Neutrophils % 67.7 %; Platelet Count 211 10^3/uL (130-400); RBC 4.61 10^6/uL (3.93-5.22); RDW 13.9 % (11.7-14.6); RDW-SD 48.4 fL; WBC 4.08 10^3/uL (4.4-10.8)
[2024-07-07 08:10] LABS: ALT 28 U/L (14-59); AST 24 U/L (15-37); Albumin 3.7 g/dL (3.4-5.0); Alkaline Phosphatase 126 U/L (46-116); Anion Gap 11.2 mmol/L (3-11); BUN 25 mg/dL (7-18); Bilirubin, Total 0.59 mg/dL (0.2-1.0); CO2 27.8 mmol/L (21.0-32.0); CREATININE 1.3 mg/dL (0.55-1.02); Calcium 9.6 mg/dL (8.5-10.1); Chloride 105 mmol/L (98-107); Estimated GFR 43.15 (mL/min/1.73m2); Glucose 92 mg/dL (74-106); Magnesium 1.9 mg/dL (1.8-2.4); Potassium 4.6 mmol/L (3.5-5.1); Sodium 144 mmol/L (136-145)
[2024-07-07] MEDS: Normal Saline - Diluent 50 ML VIAL IJ (10:03)
[2024-07-07] MEDS: Omnipaque 350 MG/ML 100 ML BTL IJ (10:04)
== END 2024-07-07 01:03 ==
LOC: DI 00:43
PROVIDERS: Nurse Practitioner Family; PCP Family Medicine; Visit Provider Internal Medicine Medical Oncology
DX: C34.91 Malignant neoplasm of unspecified part of right bronchus or lung (principal)
CPT/HCPCS: 74177; 80053; 71260; 83735; 85025; J3490

== ENCOUNTER 2024-10-19 01:37 | Outpatient (CLI) | payer MEDICARE, SELFPAY ==
--- NOTE | 2024-10-19 | DI.CT_ITS ---
Exam(s) CT CHEST/ABD/PEL W EXAM: CT CHEST/ABD/PEL W CLINICAL HISTORY: Metastatic NSCLC, C34.91, mets to rt adrenal gland, C79.71, restaging. TECHNIQUE: Imaging Protocol: Axial computed tomography images with coronal and sagittal reformatted images were created and reviewed CONTRAST MATERIAL: Intravenous: Omnipaque 350 Contrast volume:100 ml Oral: Yes. Oral contrast was also administered for bowel opacification. COMPARISON: CT CT CHEST/ABD/PEL W from 07/07/2024 FINDINGS: CHEST: LUNGS: Previously described small nodular infiltrate in the lateral aspect of the right upper lobe re nikolai unchanged as does the fissure adjacent nodule in the right lung and previously present pleural based nodule in the lateral basal segment right lower lobe. In addition, the previously described ti ny nodule in lateral basal segment the opposite-left lower lobe remains unchanged.. There are no new lung nodules nor new infiltrates nor pleural effusions. MEDIASTINUM: There is no new hilar nor new mediastinal adenopathy. Three visualized thyroid unremarka ble. CARDIAC: Heart size is normal. There is no pericardial effusion.Caliber of the thoracic aorta is wit hin normal limits. OSSEOUS: No significant osseous lesions.No fractures.. ABDOMEN: There is no ascites. There are no new mesenteric masses. LIVER: There are no significant focal hepatic lesions nor dilatation of intrahepatic ducts. Tiny cys t in the lateral aspect of right hepatic lobe is unchanged. GALLBLADDER/BILIARY: No obvious gallbladder pathology. CBD is not dilated. PANCREAS: No evidence of pancreatic mass nor dilatation of the pancreatic duct. SPLEEN: Spleen is not enlarged. There are no intrasplenic lesions. Splenic and portal veins are garcia nt. ADRENALS: There are no significant adrenal masses. KIDNEYS: There is a solitary small nonobstructive calculus in the midpole of the right kidney again n oted. No other focal right renal findings. There is a benign cyst in the superior pole of the left kidney again noted which measures 1.2 cm. No solid renal masses. No hydronephrosis. Ureters are no t dilated. Urinary bladder is collapsed. ABDOMINAL AORTA: Abdominal aorta is not enlarged. LYMPH NODES: There is no retroperitoneal nor paraaortic adenopathy. ABDOMINAL WALL: No evidence of significant anterior abdominal wall nor inguinal hernia. GI: There is no evidence of bowel obstruction. PELVIS: LYMPH NODES: There is no intrapelvic nor inguinal adenopathy. GI: No evidence of appendicitis.No evidence of sigmoid diverticulitis. URINARY BLADDER: Collapsed. No obvious masses nor intraluminal calculi.. REPRODUCTIVE: Anterior myometrial fibroid noted. Slight thickening of the endometrium for this age g roup OSSEOUS: No significant osseous lesions. Multilevel degenerative disc disease in the lower lumbar spine. No listhesis. IMPRESSION: 1. Continued stable appearance of the previously described findings in the chest. No new intrathorac ic findings and no pleural effusions. 2. No evidence of new significant metastatic findings in the abdomen and pelvis. 3. Stable size and position of the previously described 3-4 mm nonobstructive solitary calculus in th e right kidney. 4. Noncalcified anterior myometrial fibroid noted. In addition, the endometrium appears slightly th ickened for this age group. Consider pelvic ultrasound for more accurate measurement of the endometr ium. RADIATION DOSE DELIVERED: 457.44mGy.cm Total DLP DATA REPOSITORY: All CT scans at this facility are submitted to the National Radiology Data Registry (NRDR) Dose Index Registry (DIR) with the [employer] (ACR). RADIATION OPTIMIZATION: All CT scans at this facility use at least one of these dose optimization te chniques: automated exposure control; mA and/or kV adjustment per patient size (includes targeted exa ms where dose is matched to clinical indication); or iterative reconstruction.
[2024-10-19] MEDS: Barium Sulfate 2% W/V-Berry Smoothie 450 ML BTL PO ×2 (07:49→07:50)
[2024-10-19 08:12] LABS: Abs Immature Grans 0.02 10^3/uL (0.0-0.06); Absolute Basophil Count 0.05 10^3/uL (0.0-0.2); Absolute Eosinophil Count 0.07 10^3/uL (0.0-0.7); Absolute Lymphocyte Count 0.78 10^3/uL (1.2-3.4); Absolute Monocyte Count 0.38 10^3/uL (0.1-0.8); Absolute Neutrophil Count 3.73 10^3/uL (1.2-6.7); Eosinophils % 1.4 %; HCT 46.1 % (36.0-46.0); HGB 14.9 g/dL (11.2-15.7); Immature Grans % 0.4 %; Lymphocytes % 15.5 %; MCHC 32.3 % (32.0-36.0); MCV 93 fL (80-95); MPV 9.3 fL (8.0-11.0); Monocytes % 7.6 %; Neutrophils % 74.1 %; Platelet Count 221 10^3/uL (130-400); RBC 4.97 10^6/uL (3.93-5.22); RDW 14.2 % (11.7-14.6); RDW-SD 48.3 fL; WBC 5.03 10^3/uL (4.4-10.8)
[2024-10-19 08:23] LABS: ALT 28 U/L (14-59); AST 23 U/L (15-37); Albumin 3.9 g/dL (3.4-5.0); Alkaline Phosphatase 116 U/L (46-116); Anion Gap 6.7 mmol/L (3-11); BUN 20 mg/dL (7-18); Bilirubin, Total 0.39 mg/dL (0.2-1.0); CO2 28.3 mmol/L (21.0-32.0); CREATININE 1.4 mg/dL (0.55-1.02); Calcium 9.8 mg/dL (8.5-10.1); Chloride 106 mmol/L (98-107); Estimated GFR 39.48 (mL/min/1.73m2); Glucose 100 mg/dL (74-106); Potassium 4.9 mmol/L (3.5-5.1); Sodium 141 mmol/L (136-145); Total Protein 8.1 g/dL (6.4-8.2)
[2024-10-19] MEDS: Omnipaque 350 MG/ML 100 ML BTL IJ (09:52)
[2024-10-19] MEDS: Normal Saline - Diluent 50 ML VIAL IJ (09:53)
== END 2024-10-19 01:57 ==
LOC: DI 01:37
PROVIDERS: PCP Family Medicine; Visit Provider Internal Medicine Medical Oncology
DX: C79.71 Secondary malignant neoplasm of right adrenal gland (principal); C34.91 Malignant neoplasm of unspecified part of right bronchus or lung
CPT/HCPCS: 74177; 80053; 71260; 83735; 85025; J3490

== ENCOUNTER 2025-02-23 00:19 | Outpatient (CLI) | payer MEDICARE, SELFPAY ==
[2025-02-23 09:02] LABS: Abs Immature Grans 0.01 10^3/uL (0.0-0.06); Absolute Basophil Count 0.03 10^3/uL (0.0-0.2); Absolute Eosinophil Count 0.08 10^3/uL (0.0-0.7); Absolute Lymphocyte Count 0.73 10^3/uL (1.2-3.4); Absolute Monocyte Count 0.32 10^3/uL (0.1-0.8); Absolute Neutrophil Count 2.81 10^3/uL (1.2-6.7); Basophils % 0.8 %; HCT 40.2 % (36.0-46.0); HGB 13.4 g/dL (11.2-15.7); Immature Grans % 0.3 %; Lymphocytes % 18.3 %; MCH 30.9 pg (27.0-33.0); MCHC 33.3 % (32.0-36.0); MCV 93 fL (80-95); MPV 9.5 fL (8.0-11.0); Neutrophils % 70.6 %; Platelet Count 229 10^3/uL (130-400); RBC 4.33 10^6/uL (3.93-5.22); RDW 13.9 % (11.7-14.6); RDW-SD 47.5 fL; WBC 3.98 10^3/uL (4.4-10.8)
[2025-02-23 09:22] LABS: ALT 28 U/L (14-59); AST 24 U/L (15-37); Albumin 3.6 g/dL (3.4-5.0); Alkaline Phosphatase 118 U/L (46-116); Anion Gap 8.1 mmol/L (3-11); BUN 29 mg/dL (7-18); Bilirubin, Total 0.4 mg/dL (0.2-1.0); CO2 27.9 mmol/L (21.0-32.0); CREATININE 1.3 mg/dL (0.55-1.02); Calcium 8.9 mg/dL (8.5-10.1); Chloride 105 mmol/L (98-107); Estimated GFR 42.88 (mL/min/1.73m2); Glucose 96 mg/dL (74-106); Potassium 4.4 mmol/L (3.5-5.1); Sodium 141 mmol/L (136-145); Total Protein 7.4 g/dL (6.4-8.2)
[2025-02-23] MEDS: Omnipaque 350 MG/ML 500 ML BTL-Imaging package IJ (09:36)
--- NOTE | 2025-02-23 09:39 | DI.CT_ITS ---
Exam(s) CT CHEST W EXAM: CT CHEST W CLINICAL HISTORY: Metastatic NSCLC, C34.91; rt adrenal met, C79.71,exceptional response to tx TECHNIQUE: Imaging Protocol: Axial computed tomography images with coronal and sagittal reformatted images were created and reviewed. Computer aided detection (CAD) was utilized. CONTRAST MATERIAL: Intravenous: Omnipaque 350 Contrast volume:70 ml. COMPARISON: CT CT CHEST LUNG CANCER SCREEN from 06/04/[address] CHEST/ABD/PEL W from 10/19/2024 FINDINGS: Pulmonary parenchyma: No consolidation. Stable area of scarring in the lateral right upper lobe. St able nodule adjacent to the right major fissure, in the right lower lobe. Stable pleural based area of nodularity lateral right lower lobe. Stable tiny nodule at the left lung base. Underlying emphys ematous and interstitial changes. Biapical scarring. Tracheobronchial tree: No bronchiectasis or mucous plugging. Mediastinum and Etta: No dominant adenopathy or fluid collection. Pleura: No effusion. No pneumothorax. Heart: The heart is not dilated. No coronary artery calcifications are seen. Aorta: Thoracic aorta non-dilated. Mild atherosclerotic changes. Pulmonary arteries: No gross evidence of emboli. Upper abdomen: No acute findings. The right adrenal gland is mildly thickened compared to the lef t which appears unchanged in position. No discrete mass is identified. Bones: Degenerative changes in the spine. Soft tissues: Unremarkable. Impression: Stable small pulmonary nodules. No new abnormalities. RADIATION DOSE DELIVERED: 173.9mGy.cm Total DLP DATA REPOSITORY: All CT scans at this facility are submitted to the National Radiology Data Registry (NRDR) Dose Index Registry (DIR) with the [employer] (ACR). RADIATION OPTIMIZATION: All CT scans at this facility use at least one of these dose optimization te chniques: automated exposure control; mA and/or kV adjustment per patient size (includes targeted exa ms where dose is matched to clinical indication); or iterative reconstruction.
== END 2025-02-23 00:39 ==
LOC: DI 00:19
PROVIDERS: PCP Family Medicine; Visit Provider Internal Medicine Medical Oncology
DX: C34.11 Malignant neoplasm of upper lobe, right bronchus or lung (principal); C79.71 Secondary malignant neoplasm of right adrenal gland
CPT/HCPCS: 80053; 71260; 85025

== ENCOUNTER 2025-06-27 03:25 | Outpatient (CLI) | payer MEDICARE, SELFPAY ==
[2025-06-27] MEDS: Barium Sulfate 2% W/V-Creamy Vanilla Smoothie 450 ML BTL PO (08:11)
[2025-06-27] MEDS: Barium Sulfate 2% W/V-Berry Smoothie 450 ML BTL PO (08:11)
[2025-06-27 08:35] LABS: Abs Immature Grans 0.01 10^3/uL (0.0-0.06); HCT 42.5 % (36.0-46.0); HGB 13.6 g/dL (11.2-15.7); Immature Grans % 0.2 %; MCH 29.1 pg (27.0-33.0); MCHC 32.0 % (32.0-36.0); MCV 91 fL (80-95); MPV 9.3 fL (8.0-11.0); Platelet Count 238 10^3/uL (130-400); RBC 4.68 10^6/uL (3.93-5.22); RDW 14.4 % (11.7-14.6); RDW-SD 48.2 fL; WBC 4.24 10^3/uL (4.4-10.8)
[2025-06-27 08:58] LABS: ALT 30 U/L (14-59); AST 25 U/L (15-37); Albumin 3.7 g/dL (3.4-5.0); Alkaline Phosphatase 125 U/L (46-116); Anion Gap 7.5 mmol/L (3-11); BUN 24 mg/dL (7-18); Bilirubin, Total 0.4 mg/dL (0.2-1.0); CO2 27.5 mmol/L (21.0-32.0); Calcium 9.3 mg/dL (8.5-10.1); Chloride 106 mmol/L (98-107); Estimated GFR 47.21 (mL/min/1.73m2); Glucose 97 mg/dL (74-106); Potassium 4.3 mmol/L (3.5-5.1); Sodium 141 mmol/L (136-145); Total Protein 7.8 g/dL (6.4-8.2)
[2025-06-27] MEDS: Omnipaque 350 MG/ML 100 ML BTL IJ (10:19)
[2025-06-27] MEDS: Normal Saline - Diluent 50 ML VIAL IJ (10:21)
[2025-06-27] MEDS: Normal Saline Flush 10 ML SYR IVP (10:24)
--- NOTE | 2025-06-27 10:32 | DI.CT_ITS ---
Exam(s) CT CHEST/ABD/PEL W EXAM: CT CHEST/ABD/PEL W CLINICAL HISTORY: RT LUNG CANCER C34.91 METS TO RT ADRENAL GLAND C79.71 STAGE IV MONITORING. TECHNIQUE: Imaging Protocol: Axial computed tomography images with coronal and sagittal reformatted images were created and reviewed CONTRAST MATERIAL: Intravenous: Omnipaque 350 Contrast volume:100 ml Oral: Yes. Oral contrast was also administered for bowel opacification COMPARISON: CT CT CHEST/ABD/PEL W from 10/19/[address] CHEST W from 02/23/2025 FINDINGS: CHEST: LUNGS: The previously described fissure related nodule in the right lung remains unchanged in size. The previously described small nodular infiltrate in the lateral aspect of the right upper lobe also is unchanged. No new right lung findings. Tiny subpleural 2 millimeter nodule in the left lower lobe is unchanged. No new left lung findings. There are no pleural effusions. No new findings in the trachea and mainstem bronchi.. MEDIASTINUM: There is no new hilar nor new mediastinal adenopathy. Visualized thyroid unremarkable. CARDIAC: Heart size is normal. There is no pericardial effusion.Caliber of the thoracic aorta is within normal limits. OSSEOUS: No significant osseous lesions.No fractures. . ABDOMEN: There is no ascites. No new mesenteric masses. LIVER: There are no focal hepatic lesions nor dilatation of intrahepatic ducts. GALLBLADDER/BILIARY: No obvious gallbladder pathology. CBD is not dilated. PANCREAS: No evidence of pancreatic mass nor dilatation of the pancreatic duct. SPLEEN: Spleen size remains normal. No splenic lesions. Single calcification in the medial spleen is unchanged consistent with calcified benign granuloma. Splenic and portal veins are patent. ADRENALS: No new adrenal findings. Slight thickening of the genu of the left adrenal gland and of the limbs of the right adrenal gland are unchanged. KIDNEYS: There is a solitary nonobstructive 4 millimeter calculus in the right kidney again noted. No calculi in the left kidney. Solitary benign cyst in the upper pole of the left kidney measuring 1.2 cm is unchanged. Does not require further workup. No solid renal masses. No hydronephrosis nor hydroureter nor obvious abnormality in the urinary bladder.. ABDOMINAL AORTA: Calcified but not enlarged. LYMPH NODES: There is no retroperitoneal nor paraaortic adenopathy. ABDOMINAL WALL: No evidence of significant anterior abdominal wall nor inguinal hernia. GI: There is no evidence of bowel obstruction. PELVIS: LYMPH NODES: There is no intrapelvic nor inguinal adenopathy. GI: No evidence of appendicitis.No evidence of sigmoid diverticulitis. URINARY BLADDER: No calculi nor masses evident REPRODUCTIVE: Uterus anteverted. There is slight thickening of the endometrium for this age group. Recommend follow-up ultrasound. There are no abnormal adnexal masses nor free fluid in the pelvis. OSSEOUS: Benign-appearing asymmetry in the right-side of the sacrum unchanged. No significant osseous lesions. No fractures evident. IMPRESSION: 1. Continued stable appearance of previously described small pulmonary nodules. No new lung findings nor pleural effusions. 2. Solitary nonobstructive 4 millimeter calculus again noted in the right kidney. 3. There is slight thickening of the endometrial lining of the uterus for this age group. There is also an anterior myometrial fibroid again noted. Recommend follow-up pelvic ultrasound for further study the endometrium.. No abnormal adnexal masses nor free fluid. RADIATION DOSE DELIVERED: 795.5mGy.cm Total DLP DATA REPOSITORY: All CT scans at this facility are submitted to the National Radiology Data Registry (NRDR) Dose Index Registry (DIR) with the [employer] (ACR). RADIATION OPTIMIZATION: All CT scans at this facility use at least one of these dose optimization techniques: automated exposure control; mA and/or kV adjustment per patient size (includes targeted exams where dose is matched to clinical indication); or iterative reconstruction.
== END 2025-06-27 03:45 ==
PROVIDERS: Nurse Practitioner Family; PCP Family Medicine; Visit Provider Internal Medicine Medical Oncology
DX: C34.91 Malignant neoplasm of unspecified part of right bronchus or lung (principal); C79.71 Secondary malignant neoplasm of right adrenal gland
CPT/HCPCS: 74177; 80053; 71260; 85025; J3490